=== PATIENT | male | born 1955 | race Caucasian/White ===

== ENCOUNTER 2024-08-14 07:38 | Observation (INO) ==
--- NOTE | 2024-07-17 11:35 | PAT Medication Instructions ---
Medication Instructions Date of Service July 17, 2024 Home Medications alprazolam 0.5 mg tablet 0.5 mg PO BID PRN apixaban 5 mg tablet (Eliquis) 5 mg PO BID ascorbic acid (vitamin C) 500 mg tablet (Vitamin C) 500 mg PO QAM atenolol 50 mg tablet 50 mg PO UD cefadroxil 500 mg capsule 500 mg PO BID cholecalciferol (vitamin D3) 10 mcg (400 unit) tablet (Vitamin D3) 10 mcg PO QAM diltiazem HCl 240 mg capsule,extended release 24 hr 240 mg PO QAM empagliflozin 25 mg tablet (Jardiance) 25 mg PO QPM glimepiride 2 mg tablet 2 mg PO BID hydrochlorothiazide 12.5 mg tablet 12.5 mg PO QAM lisinopril 40 mg tablet 40 mg PO QAM multivitamin 1 tab PO QAM omega-3 fatty acids 1,000 mg PO QAM rosuvastatin 10 mg tablet 10 mg PO QPM Continue as directed cefadroxil 500 mg capsule 500 mg PO BID ASK your prescriber and surgeon apixaban 5 mg tablet (Eliquis) 5 mg PO BID STOP taking 2 weeks before surgery omega-3 fatty acids 1,000 mg PO QAM STOP taking 3 days before surgery empagliflozin 25 mg tablet (Jardiance) 25 mg PO QPM DO NOT take the morning of surgery ascorbic acid (vitamin C) 500 mg tablet (Vitamin C) 500 mg PO QAM cholecalciferol (vitamin D3) 10 mcg (400 unit) tablet (Vitamin D3) 10 mcg PO QAM glimepiride 2 mg tablet 2 mg PO BID hydrochlorothiazide 12.5 mg tablet 12.5 mg PO QAM lisinopril 40 mg tablet 40 mg PO QAM multivitamin 1 tab PO QAM Take morning of surgery With a small sip of water, OTHERWISE NOTHING TO EAT OR DRINK AFTER MIDNIGHT: alprazolam 0.5 mg tablet 0.5 mg PO BID PRN (if needed) atenolol 50 mg tablet 50 mg PO UD diltiazem HCl 240 mg capsule,extended release 24 hr 240 mg PO QAM Take evening before surgery alprazolam 0.5 mg tablet 0.5 mg PO BID PRN (if needed) atenolol 50 mg tablet 50 mg PO UD glimepiride 2 mg tablet 2 mg PO BID rosuvastatin 10 mg tablet 10 mg PO QPM Other Notes If you have any questions please call us at [phone] or [phone] or [phone] or [phone]
--- NOTE | 2024-07-23 13:01 | Anesthesiology Consultation ---
Date of Service July 23, 2024 Assessment & Plan (1) Encounter for pre-operative examination: - Check BSG DOS - Eliquis instructions per surgeon/prescriber - Infectious disease screening: Per assessment on 07/23/24- No known recent infectious disease contacts or current infectious disease symptoms. - Cardiovascular-thoracic surgery (04/16/24): "01/31/23 Right carotid endarterec tim..Patient is recovering well from R CEA.. Follow-up recommended in 1 year with carotid US" - Patient acceptable risk for surgery pending surgeon-ordered PCP preop evaluation (Dr. Gilman, appt 08/05). Chart Review Chart Review: Patient seen in Pre Admission Testing Teaching & Discussion Pre-Anesthesia Teaching/Discussion Notes: Instructed NPO after midnight before surgery,except medications with 15 cc of water. Medication instructions pr ovided according to the PAT guidelines. History Surgery Operation Date: 08/14/24 07:45 Proposed Procedures p Revision L3-S1 Decompression and Fusion, with Spinal Cord Monitoring - Jigar Bonds, Height/Weight Height: 5 ft 11 in Weight: 95.5 kg Allergies Allergy/AdvReac Type Severity Reaction Status Date / Time metformin Allergy Severe Facial Verified 07/22/24 16:16 swelling Sulfa (Sulfonamide Allergy Intermediate Rash Verified 07/16/24 09:46 Antibiotics) hydrocodone Allergy Mild Rash Verified 07/16/24 09:46 Medications Home Medications Medication Instructions Recorded Confirmed Last Taken alprazolam 0.5 mg tablet 0.5 mg PO BID PRN prn 07/16/24 07/16/24 Unknown apixaban 5 mg tablet (Eliquis) 5 mg PO BID 07/16/24 07/16/24 Unknown ascorbic acid (vitamin C) 500 mg 500 mg PO QAM 07/16/24 07/16/24 Unknown tablet (Vitamin C) atenolol 50 mg tablet 50 mg PO UD 07/16/24 07/16/24 Unknown cefadroxil 500 mg capsule 500 mg PO BID 07/16/24 07/16/24 Unknown cholecalciferol (vitamin D3) 10 10 mcg PO QAM 07/16/24 07/16/24 Unknown mcg (400 unit) tablet (Vitamin D3) diltiazem HCl 240 mg 240 mg PO QAM 07/16/24 07/16/24 Unknown capsule,extended release 24 hr empagliflozin 25 mg tablet 25 mg PO QPM 07/16/24 07/16/24 Unknown (Jardiance) glimepiride 2 mg tablet 2 mg PO BID 07/16/24 07/16/24 Unknown hydrochlorothiazide 12.5 mg tablet 12.5 mg PO QAM 07/16/24 07/16/24 Unknown lisinopril 40 mg tablet 40 mg PO QAM 07/16/24 07/16/24 Unknown multivitamin 1 tab PO QAM 07/16/24 07/16/24 Unknown omega-3 fatty acids 1,000 mg PO QAM 07/16/24 07/16/24 Unknown rosuvastatin 10 mg tablet 10 mg PO QPM 07/16/24 07/16/24 Unknown Past Medical History Medical History Anxiety Diabetes mellitus, type 2 NIDDM History of atrial fibrillation Episode ~2021 after choking on food No known recurrence since, 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 Taking Titi (PCP manages) History of carotid stenosis s/p Right CEA (01/2023) Follows with Cardiovascular-thoracic surgery History of cellulitis RLE (2019) after bug bite > needed to have replacement removed and replaced Follows with infectious disease [facility], life-long abx Hypercholesterolemia Hypertension Exercise / Class Metabolic Activity II 4-5 Yardwork/Stairs/Walk up hill Past Surgical History Surgical History History of colonoscopy History of endarterectomy Right CEA (01/2023) History of facial surgery Right cheek cyst removal, [facility] (02/2024) History of lumbar surgery Denies hardware History of rotator cuff surgery R/L History of total knee replacement R/L Past Anesthesia History No Hx of Anesthesia Complications and No Family Hx of Anesthesia Complications History of PONV No Hx of PONV and No Hx of Motion Sickness Social History Smoking Status: Never smoker Do You Dip or Chew Tobacco: No Hx Alcohol Use: Yes alcohol intake frequency: a few times a month Hx Substance Use: No substance use type: does not use Review of Systems Patient denies chest pain, shortness of breath, dyspnea on exertion, fever, chills, cough, wheezing, palpitations. Physical Exam Vital Signs BP 121/68 P 60 TEMP 98.3 SP02 97%RA RESP 16 Physical Full cervical extension range of motion. Full TMJ range of motion. TMD 3 finger breaths Mallampati Score III Dentition: upper partial Lungs: clear throughout to auscultation Cardiac: regular rate and rhythm, no murmurs noted Spine: normal Carotid arteries: negative bruit Extremities: no LE edema Lab Results Anesthesia Preop Results Results Anesthesia Widget: WBC 6.54 K/ul (4.8-10.8) 07/23/24 Hgb 14.3 g/dl (14.0-18.0) 07/23/24 Hct 43.4 % (42.0-52.0) 07/23/24 Plt 128 K/uL (130-400) L 07/23/24 Na 141 mmol/L (136-145) 07/23/24 K 4.4 mmol/L (3.5-5.1) 07/23/24 Cl 103 mmol/L (98-107) 07/23/24 CO2 29 mmol/L (21-32) 07/23/24 BUN 17 mg/dl (6-23) 07/23/24 Creat 1.01 mg/dl (0.6-1.4) 07/23/24 Glucose Level 113 mg/dl (70-99(Fasting)) H 07/23/24 PT 10.3 Seconds (9.0-12.0) 07/23/24 PTT 27 Seconds (21-31) 07/23/24 INR 0.9 (0.9-1.1) 07/23/24 HA1c 7.3 % (4.5-5.6) H 07/23/24 Urine Color Yellow 07/23/24 Urine Appearance Clear (Clear) 07/23/24 Urine pH 5.5 (4.5-7.5) 07/23/24 Urine Specific Myra 1.036 (1.000-1.030) H 07/23/24 Urine Protein Negative (Negative) 07/23/24 Urine Glucose (UA) 3+ (Negative) H 07/23/24 Urine Ketones Trace (Negative) H 07/23/24 Urine Blood Negative (Negative) 07/23/24 Urine Nitrite Negative (Negative) 07/23/24 Urine Bilirubin Negative (Negative) 07/23/24 Urine Urobilinogen Negative (Negative) 07/23/24 Urine Leukocyte Esterase Negative (Negative) 07/23/24 Blood Type O Positive 07/23/24 Antibody Screen NEGATIVE 07/23/24 Testing Electrocardiogram Date: 07/23/24 SB at 59bpm. "Otherwise normal ECG" Chest X-Ray Date: 07/23/24 FINDINGS: No lines and tubes are seen. The cardiomediastinal silhouette is nor mal. The lungs are clear. No evidence of pleural effusion or pneumothorax. IMPRESSION: No acute chest disease. Other Testing Carotid duplex ultrasound Date: 02/03/24 Approximately 50-69% luminal narrowing in right proximal ICA. Low velocity flow in right distal ICA. Atherosclerotic plaques in left carotid bulb with minimal luminal stenosis. Antegrade flow seen in bilateral vertebral arteries.
[2024-08-14] MEDS ORDERED: fentaNYL citrate PF 100 MCG/2 ML VIAL ONE ×2 (09:17→13:10)
[2024-08-14] MEDS ORDERED: ONDANSETRON INJ 2 MG/ML 2 ML VIAL ONE (09:17)
[2024-08-14] MEDS ORDERED: PROPOFOL IV EMULSION 10 MG/ML 20 ML VIAL IV ONE ×2 (09:17→09:53)
[2024-08-14] MEDS ORDERED: LIDOCAINE 2% 2 ML VIAL/AMP(20MG/ML) INFIL ONE (09:17)
[2024-08-14] MEDS ORDERED: ROCURONIUM BROMIDE 10 MG/ML 5 ML VIAL IV ONE ×2 (09:17→12:04)
[2024-08-14] MEDS ORDERED: DEXAMETHASONE SOD INJ 4 MG/ML VIAL ONE (09:17)
[2024-08-14] MEDS ORDERED: MIDAZOLAM HCL 1 MG/ML 2ML VIAL ONE (09:18)
[2024-08-14] MEDS: LR 15ML/HR IV SCH (09:18)
[2024-08-14] MEDS: ACETAMINOPHEN 500 MG TAB PO SCH (09:19)
[2024-08-14] MEDS: CeleBREX 200 MG CAP PO SCH (09:20)
[2024-08-14] MEDS: GABAPENTIN 300 MG CAP PO SCH (09:21)
[2024-08-14] MEDS ORDERED: PROMETHAZINE HCL 6.25 MG in SODIUM CHLORIDE 0.9% 50 ML IV PRN (09:28)
[2024-08-14] MEDS ORDERED: ATROPINE SULFATE 0.1 MG/ML 10ML SYR IV PRN (09:28)
[2024-08-14] MEDS ORDERED: ONDANSETRON INJ 2 MG/ML 2 ML VIAL IV PRN ×2 (09:28→17:00)
[2024-08-14] MEDS ORDERED: ePHEDrine sulfate 50 MG/ML AMP IV PRN (09:28)
[2024-08-14] MEDS ORDERED: HYDROmorphone INJ 1 MG/ML SYRINGE IV PRN ×2 (09:28→17:00)
--- NOTE | 2024-08-14 11:09 | History & Physical Bridge Note ---
Date of Service August 14, 2024 History & Physical Bridge Note I have examined the patient, reviewed the History & Physical and in the interval since the performance of the History & Physical I have noted the following changes of clinical significance: no changes noted
--- NOTE | 2024-08-14 11:10 | History & Physical Report ---
Date of Service August 14, 2024 Assessment & Plan (1) Neurogenic claudication due to lumbar spinal stenosis: Plan: Revision L3-S1 decompression and fusion History of Present Illness Chief Complaint: back and leg pain Primary Care Provider: NO PCP This is a 60-year-old male presents with chronic system back and leg pain and failing course of nonoperative care is here for surgical invention. Allergies Allergy/AdvReac Type Severity Reaction Status Date / Time metformin Allergy Severe Facial Verified 08/14/24 08:48 swelling Sulfa (Sulfonamide Allergy Intermediate Rash Verified 08/14/24 08:48 Antibiotics) hydrocodone Allergy Mild Rash Verified 08/14/24 08:48 Home Medications Medication Instructions Recorded Confirmed Type alprazolam 0.5 mg tablet 0.5 mg PO BID PRN prn 07/16/24 08/14/24 History apixaban 5 mg tablet (Eliquis) 5 mg PO BID 07/16/24 08/14/24 History ascorbic acid (vitamin C) 500 mg 500 mg PO QAM 07/16/24 08/14/24 History tablet (Vitamin C) atenolol 50 mg tablet 50 mg PO UD 07/16/24 08/14/24 History cefadroxil 500 mg capsule 500 mg PO BID 07/16/24 08/14/24 History cholecalciferol (vitamin D3) 10 10 mcg PO QAM 07/16/24 08/14/24 History mcg (400 unit) tablet (Vitamin D3) diltiazem HCl 240 mg 240 mg PO QAM 07/16/24 08/14/24 History capsule,extended release 24 hr empagliflozin 25 mg tablet 25 mg PO QPM 07/16/24 08/14/24 History (Jardiance) glimepiride 2 mg tablet 2 mg PO BID 07/16/24 08/14/24 History hydrochlorothiazide 12.5 mg tablet 12.5 mg PO QAM 07/16/24 08/14/24 History lisinopril 40 mg tablet 40 mg PO QAM 07/16/24 08/14/24 History multivitamin 1 tab PO QAM 07/16/24 08/14/24 History omega-3 fatty acids 1,000 mg PO QAM 07/16/24 08/14/24 History rosuvastatin 10 mg tablet 10 mg PO QPM 07/16/24 08/14/24 History Past Med/Surg History Problem List (Updated 08/14/24 @ 11:10 by Jigar Bonds DO) Neurogenic claudication due to lumbar spinal stenosis Encounter for pre-operative examination Medical History Anxiety Diabetes mellitus, type 2 NIDDM History of atrial fibrillation Episode ~2021 after choking on food No known recurrence since, 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 Eliajit (PCP manages) History of carotid stenosis s/p Right CEA (01/2023) Follows with Cardiovascular-thoracic surgery History of cellulitis RLE (2019) after bug bite > needed to have replacement removed and replaced Follows with infectious disease [facility], life-long abx Hypercholesterolemia Hypertension Surgical History History of colonoscopy History of endarterectomy Right CEA (01/2023) History of facial surgery Right cheek cyst removal, [facility] (02/2024) History of lumbar surgery Denies hardware History of rotator cuff surgery R/L History of total knee replacement R/L Social History Smoking Status: Never smoker Second Hand Exposure: No; Do You Dip or Chew Tobacco: No; Tobacco Cessation Education Requested by Patient: No Hx Alcohol Use: Yes Hx Substance Use: No Preferred 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
[2024-08-14] MEDS: ceFAZolin 2000MG 2,000 MG/15 ML SYR IV SCH ×2 (11:45→21:25)
[2024-08-14] MEDS ORDERED: GLYCOPYRROLATE 0.2 MG/ML VIAL ONE (13:56)
[2024-08-14] MEDS ORDERED: NEOSTIGMINE METHYLSULFATE 1 MG/ML 10ML VIAL ONE (13:56)
[2024-08-14] MEDS ORDERED: DexMEDEtomidine HCL IV 100 MCG/ML VIAL IV ONE (14:01)
[2024-08-14] MEDS: BUPIVACAINE/EPINEPHRINE 0.25% 1:200,000 30 ML VIAL ONE (14:04)
[2024-08-14] MEDS: FLOSEAL HEMOSTATIC MATRIX 10ML TOP ONE ×2 (14:05→14:07)
[2024-08-14] MEDS: ceFAZolin 330 MG/ML 1 GM VIAL ONE (14:07)
--- NOTE | 2024-08-14 14:08 | Operative Report ---
Post Operative Report Pre & Post Diagnosis Operation Date: 08/14/24 10:05 Pre-Op Diagnosis: Neurogenic claudication due to lumbar spinal stenosis Postop diagnosis: Same I identified the patient and participated in the time-out.: Yes Procedure Operation Date: 08/14/24 10:05 Actual Procedures #1 revision decompression with bilateral medial facetectomies and foraminotomies L2-L3, L3-L4, L4-5 and L5-S1. #2 posterior spinal fusion L3-S1. #3 placement posterior segmental instrumentation L3-S1. #4 interbody fusion L3-L4, L4-L5 and L5-S1. #5 placement of Spira 11 x 26 mm at L3-L4, 13 x 26 mm at L4-5, and 9 x 26 mm at L5-S1. #6 placement locally harvested morselized autograft in the posterior gutters. #7 placement infuse collagen sponge combined with Koros in the posterior lateral gutters and os design and interbody space. #8 placement of versa wrap over the exposed dura. Surgeon Jigar Bonds, Wedding Makeup Artist Jocelyne Pace Estimated Blood Loss 300 Findings Consistent with Post-Op Diagnosis Specimens None Indications This is a 68-year-old male presents above his diagnosis of failing course of nonoperative care is here for surgical invention. Description of Procedure Patient was met with identified informed consent obtained. Patient was then taken to the operative suite underwent intubation placed in a prone position on the [place] table on top of the Jona frame. All bony prominences well-padded eyes inspected to ensure no external pressure placed upon them. This point the lumbar spine was prepped and draped in normal sterile fashion. Sharp dissection with the assistance of Bovie cautery performed down to and exposing the remaining lamina transverse processes of L3-L4-L5 and the sacral ala bilaterally. For caudal to cephalad fashion revision complete laminectomy of L5 was performed including bilateral medial facetectomies and foraminotomies followed by complete revision laminectomy of L4 with bilateral medial fact facetectomies and foraminotomies. This was followed by revision complete laminectomy of L3 with bilateral medial facetectomies and foraminotomies and lastly partial laminectomy of L2 with bilateral medial facetectomies to address subarticular stenosis. Pedicle screws were then placed in L3 L4-5 and S1 levels bilaterally with assistance of fluoroscopy and appropriate size don placed. By way of a transforaminal approach on the right a complete discectomy of L5-S1 was performed endplates corrected to subcortical bleeding bone and 9 x 26 mm spiral cage filled with ostia sign tapped in position. I proceeded L4-[address] of a transforaminal approach on the right complete discectomy performed endplates corrected to subcortical bleeding bone and the 13 x 26 mm Spira cage filled with os designed tapped into position. Lastly approached L3-L4 and again by way of transforaminal approach on the right complete discectomy performed endplates guarded to subcortical mean bone and a 11 x 26 mm spiral cage filled with Oxyzyme tapped in position. The rods were then locked in final position bilaterally. The transverse processes of L2-3 L4-L5 and the sacral ala burred to subcortical bleeding bone. Infuse collagen sponge, with Koros and local autograft placed in the posterior lateral gutters. 15 round JORGE drain inserted. Versa wrap placed over the exposed dura. The incision was then closed with 1 Vicryl the fascia 2-0 Vicryl subcutaneously and 4 Monocryl for final skin closure. Steri-Strips and sterile dressing placed. Patient waken taken PACU stable condition. Please note Jocelyne Pace was present at the entire procedure and brought the patient positioning complex portion of the surgery and fascial closure. Spinal cord monitoring was utilized at the procedure no changes noted. Im ordering 20 grams of Triple Barker Collagen Powder ([employer] [id number]) to treat an incision wound that was caused by a spine procedure. The incision is appro ximately 2 cm(W) x 4 cm(L) into the joint (D) in size and is a full thickness wound. Triple Barker collagen comes in 1 gram packets so 20 packets were ordered. Given the size of the wound, with light to moderate exudate I chose to order a 20 day supply. The patient will be provided instructions for proper application of the collagen wound kit. The patient will be asked to apply the collagen powder daily and then cover it with sterile dressings dispensed. Collagen was selected as I expect the collagen to attract monocytes and fibroblasts, act as a sacrificial substrate for MMPs, and ultimately proved a matrix for tissue and vessel growth. The collagen will act as a primary dressing in this scenario. It is medically necessary for proper healing of these wounds to improve bioavailability and contact with each wound surface, this is also to help prevent infection of wounds and promote healing ultimately leading to a better healing outcome and limit the risk of infection. I attest to the content of the Intraoperative Record and any orders documented therein. Any exceptions are noted below.
--- NOTE | 2024-08-14 14:13 | Fluoroscopy Report ---
FL lumbar spine 2-3V CLINICAL HISTORY: REVISION L3-[id number] post lumbar spine surgery COMPARISON STUDY: None FLUOROSCOPY TIME: 31.5 seconds FLUOROSCOPY IMAGES: 2 EXPOSURE DOSE: 27.23 mGy FINDINGS: Posterior interbody don and screw fusion hardware with discectomy changes noted at what francis ears to be the L3-S1 levels. Note that the images were submitted following completion of the surgery. No unexpected opaque foreign bodies identified. The hardware appears intact. IMPRESSION: Fluoroscopic assistance as above. ACT 112: Negative or not required by law. Electronically signed by: Eber Hyde M.D. 08/14/2024 2:11 PM
[2024-08-14] MEDS: HYDROmorphone INJ 2 MG/ML SYR/VIAL IV PRN (14:42)
--- NOTE | 2024-08-14 15:31 | Anesthesiology Progress Note ---
Date of Service August 14, 2024 Anesthesia Post Procedure Vital Signs Vital Signs: Temp Pulse Pulse Resp BP BP Pulse Ox 08/14/24 15:25 63 17 112/55 L 97 08/14/24 15:15 59 L 14 100/63 98 08/14/24 15:05 62 15 120/57 L 97 08/14/24 14:55 54 L 12 107/53 L 100 08/14/24 14:45 57 L 14 93/55 L 100 08/14/24 14:35 55 L 13 97/52 L 100 08/14/24 14:29 36.2 C L 59 L 12 109/51 L 100 08/14/24 08:58 36.8 C 61 15 132/77 96 O2 Del Method O2 Flow Rate 08/14/24 15:25 Room Air 08/14/24 15:15 Room Air 08/14/24 15:05 Room Air 08/14/24 14:55 Oxymask 5 08/14/24 14:45 Oxymask 5 08/14/24 14:35 Oxymask 5 08/14/24 14:29 Oxymask 5 08/14/24 08:58 Room Air Pain Intensity Back: Pain Intensity: 4 Transfer of Care Handoff Completed per policy Notes Mental Status: alert / awake / arousable Patient Amnestic to Procedure: Yes Nausea / Vomiting: adequately controlled Pain: adequately controlled Airway Patency, RR, SpO2: stable & adequate BP & HR: stable & adequate Hydration State: stable & adequate Anesthetic Complications: no major complications apparent
[2024-08-14] MEDS ORDERED: METOCLOPRAMIDE HCL INJ 5 MG/ML 2 ML VIAL IV PRN (17:00)
[2024-08-14] MEDS ORDERED: HYDROmorphone INJ 0.5 MG/0.5 ML SYR IV PRN (17:00)
[2024-08-14] MEDS ORDERED: ALUMINUM/MAGNESIUM SUSP 30 ML UDC PO PRN (17:00)
[2024-08-14] MEDS ORDERED: PROMETHAZINE 12.5 MG/50.5 ML BAG IV PRN (17:00)
[2024-08-14] MEDS ORDERED: hydrOXYzine HCl 25 MG TAB PO PRN (17:00)
[2024-08-14] MEDS ORDERED: LORazepam 2 MG/1 ML VIAL IV PRN (17:00)
[2024-08-14] MEDS ORDERED: diphenhydrAMINE Capsule 25 MG CAP PO PRN (17:00)
[2024-08-14] MEDS ORDERED: DO NOT ADMINISTER FLU VACCINE PRN (17:00)
[2024-08-14] MEDS ORDERED: FAMOTIDINE 20 MG TAB PO PRN (17:00)
[2024-08-14] MEDS ORDERED: ACETAMINOPHEN 1,000 MG/100 ML VIAL IV PRN (17:00)
[2024-08-14] MEDS ORDERED: LORazepam 0.5 MG TAB PO PRN (17:00)
[2024-08-14] MEDS ORDERED: SOD PHOSPHATE/SOD BIPHOSPHATE ENEMA 132 ML BTL PR PRN (17:00)
[2024-08-14] MEDS ORDERED: traMADol HCL 50 MG TABLET PO PRN (17:00)
[2024-08-14] MEDS ORDERED: NALOXONE HCL 0.4 MG/1 ML VIAL/CARP IV PRN (17:00)
[2024-08-14] MEDS ORDERED: bisacodyL 10 MG SUPP PR PRN (17:00)
[2024-08-14] MEDS ORDERED: PHARMACY GLYCEMIC MGMT CONSULT PRN (17:00)
[2024-08-14] MEDS ORDERED: ONDANSETRON 4 MG OD TAB PO PRN (17:00)
[2024-08-14] MEDS ORDERED: DO NOT ADMINISTER PNEUMOCOCCAL VACCINE PRN (17:00)
[2024-08-14] MEDS ORDERED: MAGNESIUM HYDROXIDE SUSP 30 ML UDC PO PRN (17:00)
--- NOTE | 2024-08-14 17:20 | Communication Note ---
Date of Service: August 14, 2024 called by [facility] nursing to evaluate patients eye after discharge from [facility]. Patient states he remembered scratching his eye in [facility] and pain/itching became worse afterwards. No notable issue noted periprocedurally. patient seen at bedside reports irritation to left eye, corneal abrasion appreciated lateral to pupil, no erythema or redness, patient states his vision is not effected. will order antiobiotic drops for effected eye, consult to be placed for ophthalmology for follow up and and management.
--- NOTE | 2024-08-14 17:36 | Hospitalist Consultation ---
Date of Consultation August 14, 2024 Assessment & Plan (1) Neurogenic claudication due to lumbar spinal stenosis: This is a 68 y/o male with DM2, history of afib, on chronic AC, hx carotid stenosis s/p right CEA, HTN, hypercholesterolemia, anxiety, and lumbar spinal stenosis who underwent L3-S1 decompression fusion today by Dr. Bonds and for whom we have been consulted to assist with post-operative medical management. Currently, pt is overall doing well post-operatively. Ophthalmology evaluation f or possible corneal abrasion is pending. - Pain control, activity per primary service. - Resume chronic anticoagulation once okay with primary team. - Encourage incentive spirometry - Labs in the AM - CBC, BMP. Monitor for post-operative blood loss anemia - EBL 300 ml. (2) Diabetes mellitus, type 2: Chronic, stable Glycemic pharmacist consult pending - initial insulin orders placed BSG ACHS A1c in the AM (3) History of atrial fibrillation: Continue atenolol Resume anticoagulation as discussed (4) Hypertension: BP currently well-controlled Continue outpatient regimen as appropriate (5) Hypercholesterolemia: Chronic, stable Continue statin Plan Pt seen and reviewed with collaborating physician, Dr. Garcia. Plan of care discussed and as outlined above. Thank you for this consultation. We will continue to follow this patient with you. A member of the [place] [facility] Hospitalist Team is available 22/04 via [employer]. Please don't hesitate to reach out with questions. Joyce Damon PA-C Supervising Physician Co-Signing Physician Notes 68 yo M was seen as medical consult after spinal sx. pt is hemodynamically stable. no febrile illness in the recent week. pt reports operative site pain under control. Resume anticoagulation when bleeding risk deemed minimal per sx team. Oph eval for corneal abrasion pending. on exam: GENERAL: Alert and oriented x3. NAD, on RA. HEENT: No pallor, no icterus. Pupils equal, round and reactive to light. Oral mucosa moist. NECK: No JVD, no neck masses. HEART: S1 and S2 heard. Regular rate and rhythm. No murmur, no gallop. RESPIRATORY SYSTEM: Normal AP diameter. No accessory muscle use. No wheezing, no crackles. ABDOMEN: Soft, bowel sounds present, nontender, no distention. CENTRAL NERVOUS SYSTEM: No facial droop. Speech is clear. Obeys simple commands. Moves extremities. EXTREMITIES: No edema, no erythema seen. low back w/ clean dressing. JORGE drain w/ mod serosanguinous outs. I have seen and examined the patient and have discussed the case with the provider above. I agree with the assessment and plan as stated. Time spent: 15 min History of Present Illness Reason for Consultation: post-operative medical management Requesting Physician: Dr. Jigar Bonds Attending Physician: Jigar Bonds, DO History of Present Illness This is a 68 y/o male with DM2, history of afib, on chronic AC, hx carotid stenosis s/p right CEA, HTN, hypercholesterolemia, anxiety, and lumbar spinal stenosis who underwent L3-S1 decompression fusion today by Dr. Bonds and for whom we have been consulted to assist with post-operative medical management. Pt is seen post-operatively on the floor. He is having some incisional pain in his lower back but reports that this is manageable. He is having left eye irritation with a foreign body sensation. Per notes from anesthesia, pt thinks that he may have scratched his eye while recovering in PACU. There is concern for a small corneal abrasion so antibiotic drops have been ordered but pt reports these have not been started yet. He denies chest pain, dyspnea, nausea, vomiting, lightheadedness, numbness or tingling. He is having a dry mouth/throat but denies sore throat or dysphagia. He follows his blood sugars at home and reports that they are typically well-controlled with glucose <200. Allergies Allergy/AdvReac Type Severity Reaction Status Date / Time metformin Allergy Severe Facial Verified 08/14/24 08:48 swelling Sulfa (Sulfonamide Allergy Intermediate Rash Verified 08/14/24 08:48 Antibiotics) hydrocodone Allergy Mild Rash Verified 08/14/24 08:48 Home Medications Medication Instructions Recorded Confirmed Type alprazolam 0.5 mg tablet 0.5 mg PO BID PRN prn 07/16/24 08/14/24 History apixaban 5 mg tablet (Eliquis) 5 mg PO BID 07/16/24 08/14/24 History ascorbic acid (vitamin C) 500 mg 500 mg PO QAM 07/16/24 08/14/24 History tablet (Vitamin C) atenolol 50 mg tablet 50 mg PO UD 07/16/24 08/14/24 History cefadroxil 500 mg capsule 500 mg PO BID 07/16/24 08/14/24 History cholecalciferol (vitamin D3) 10 10 mcg PO QAM 07/16/24 08/14/24 History mcg (400 unit) tablet (Vitamin D3) diltiazem HCl 240 mg 240 mg PO QAM 07/16/24 08/14/24 History capsule,extended release 24 hr empagliflozin 25 mg tablet 25 mg PO QPM 07/16/24 08/14/24 History (Jardiance) glimepiride 2 mg tablet 2 mg PO BID 07/16/24 08/14/24 History hydrochlorothiazide 12.5 mg tablet 12.5 mg PO QAM 07/16/24 08/14/24 History lisinopril 40 mg tablet 40 mg PO QAM 07/16/24 08/14/24 History multivitamin 1 tab PO QAM 07/16/24 08/14/24 History omega-3 fatty acids 1,000 mg PO QAM 07/16/24 08/14/24 History rosuvastatin 10 mg tablet 10 mg PO QPM 07/16/24 08/14/24 History Patient History Medical History History of carotid stenosis s/p Right CEA (01/2023) Follows with Cardiovascular-thoracic surgery History of atrial fibrillation Episode ~2021 after choking on food No known recurrence since, subsequent unremarkable laboratory monitor Taking Eliquis (PCP manages) History of cellulitis RLE (2019) after bug bite > needed to have replacement removed and replaced Follows with infectious disease [facility], life-long abx Diabetes mellitus, type 2 NIDDM Anxiety Hypercholesterolemia Hypertension Surgical History History of endarterectomy Right CEA (01/2023) History of facial surgery Right cheek cyst removal, [facility] (02/2024) History of rotator cuff surgery R/L History of total knee replacement R/L History of lumbar surgery Denies hardware History of colonoscopy Social History Smoking Status: Never smoker Second Hand Exposure: No; Do You Dip or Chew Tobacco: No; Tobacco Cessation Education Requested by Patient: No Hx Alcohol Use: Yes Hx Substance Use: No Preferred Language: Polish 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: No Beliefs That Will Affect Care: None Current Living Situation: Other Other Information That Helps Us Care for You: No Feels Safe at Home: Yes Safety Concerns: Feels Safe At This Time Assistive Devices: Denture - Upper Review of Systems Review of Systems: All systems reviewed & are unremarkable except as noted in Subjective Physical Exam Physical Exam: General: awake, alert, NAD HEENT: PERRL, left eye with possible small corneal abrasion, dry oral mucosa Neck: supple, trachea midline Heart: RRR, no M/G/R Lungs: CTA bilaterally, no W/R/R Abdomen: soft, NT, +BS Extremities: distal pulse intact and equal, no pedal edema Neurologic: moving all extremities, no focal deficits, sensation to light touch intact bilateral LE JORGE drain in place with sanguinous drainage Results & Data Results & Data Vital Signs (Past 12 Hours) Vital Signs Temp Pulse Pulse Resp BP BP Pulse Ox 08/14/24 17:00 36.3 C L 64 14 114/69 94 08/14/24 16:15 61 12 109/59 L 95 08/14/24 15:45 36.5 C 56 L 15 105/62 93 08/14/24 15:35 56 L 12 110/51 L 92 08/14/24 15:25 63 17 112/55 L 97 08/14/24 15:15 59 L 14 100/63 98 08/14/24 15:05 62 15 120/57 L 97 08/14/24 14:55 54 L 12 107/53 L 100 08/14/24 14:45 57 L 14 93/55 L 100 08/14/24 14:35 55 L 13 97/52 L 100 08/14/24 14:29 36.2 C L 59 L 12 109/51 L 100 08/14/24 08:58 36.8 C 61 15 132/77 96 O2 Del Method O2 Flow Rate 08/14/24 17:00 Nasal Cannula 2 08/14/24 16:15 Nasal Cannula 2 08/14/24 15:45 Room Air 08/14/24 15:35 Room Air 08/14/24 15:25 Room Air 08/14/24 15:15 Room Air 08/14/24 15:05 Room Air 08/14/24 14:55 Oxymask 5 08/14/24 14:45 Oxymask 5 08/14/24 14:35 Oxymask 5 08/14/24 14:29 Oxymask 5 08/14/24 08:58 Room Air Laboratory Results 08/14/24 08/14/24 08/14/24 08:42 09:41 14:29 POC Glucose 165 H 160 H Blood Type O Positive Antibody Screen NEGATIVE Crossmatch See Detail Diagnostic Findings Lumbar Spine X-Ray 08/14/24 10:05 FL lumbar spine 2-3V CLINICAL HISTORY: REVISION [id number] post lumbar spine surgery COMPARISON STUDY: None FLUOROSCOPY TIME: 31.5 seconds FLUOROSCOPY IMAGES: 2 EXPOSURE DOSE: 27.23 mGy FINDINGS: Posterior interbody don and screw fusion hardware with discectomy changes noted at what appears to be the L3-S1 levels. Note that the images were submitted following completion of the surgery. No unexpected opaque foreign bodies identified. The hardware appears intact. IMPRESSION: Fluoroscopic assistance as above. ACT 112: Negative or not required by law. Electronically signed by: Eber Hyde M.D. 08/14/2024 2:11 PM Medications Administered Acetaminophen (Acetaminophen 500 Mg Tab) 1,000 mg PO PREOP BEVERLY Stop: 08/14/24 18:00 Last Admin: 08/14/24 09:19 Dose: 1,000 mg Documented By: NANCY Celecoxib (Celebrex 200 Mg Cap) 200 mg PO PREOP BEVERLY Stop: 08/14/24 18:00 Last Admin: 08/14/24 09:20 Dose: 200 mg Documented By: NANCY Gabapentin (Gabapentin 300 Mg Cap) 300 mg PO PREOP BEVERLY Stop: 08/14/24 18:00 Last Admin: 08/14/24 09:21 Dose: 300 mg Documented By: NANCY Lactated Ringer's (Lr) 1,000 mls @ 15 mls/hr IV .Q24H BEVERLY Stop: 08/15/24 05:59 Last Infusion: 08/14/24 11:25 Dose: Infused Documented By: Infusion: 08/14/24 09:19 Dose: 0 mls/hr Documented By: Admin: 08/14/24 09:18 Dose: 15 mls/hr Documented By: NANCY Cefazolin Sodium (Ancef 2000mg) 2,000 mg in 15 mls @ 3.75 mls/min IV PREOP BEVERLY; Protocol Stop: 08/14/24 18:00 Last Admin: 08/14/24 11:45 Dose: 3.75 mls/min Documented By: BRY Discontinued Medications Bupivacaine HCl/Epinephrine Bitart (Bupivacaine/Epinephrine 0.25% 1:200,000 30 Ml Vial) Confirm Administered Dose 30 ml .ROUTE .STK-MED ONE Stop: 08/14/24 11:08 Last Admin: 08/14/24 14:04 Dose: 20 ml Documented By: BRY Cefazolin Sodium (Cefazolin 330 Mg/Ml 1 Gm Vial) Confirm Administered Dose 990 mg .ROUTE .STK-MED ONE Stop: 08/14/24 11:08 Last Admin: 08/14/24 14:07 Dose: 990 mg Documented By: BRY Hydromorphone HCl (Hydromorphone Inj 2 Mg/Ml Syr/Vial) 0.5 mg IV Q5M PRN PRN Reason: PACU Use Only-Pain Stop: 08/14/24 17:28 Last Admin: 08/14/24 15:20 Dose: 0.5 mg Documented By: Admin: 08/14/24 15:15 Dose: 0.5 mg Documented By: Admin: 08/14/24 14:47 Dose: 0.5 mg Documented By: Admin: 08/14/24 14:42 Dose: 0.5 mg Documented By: WENDY Miscellaneous ( Floseal Hemostatic Matrix 10ml) 30 ml TOP ONCE ONE Stop: 08/14/24 12:50 Last Admin: 08/14/24 14:05 Dose: 30 ml Documented By: BRY Miscellaneous ( Floseal Hemostatic Matrix 10ml) 10 ml TOP ONCE ONE Stop: 08/14/24 14:08 Last Admin: 08/14/24 14:07 Dose: 3 ml Documented By: BRY (2) Diabetes mellitus, type 2 Diabetes mellitus complication status: without complication Diabetes mellitus penitentiary insulin use: without intermediate manager use Qualified Code(s): E11.9 - Type 2 diabetes mellitus without complications (4) Hypertension Hypertension type: primary hypertension Qualified Code(s): I10 - Essential (primary) hypertension
[2024-08-14] MEDS ORDERED: GLUCAGON FOR INJ 1 MG VIAL SQ PRN (17:57)
[2024-08-14] MEDS ORDERED: DEXTROSE 50% 50 ML SYRINGE IV PRN (17:57)
[2024-08-14] MEDS ORDERED: CARBOHYDRATES FOR HYPOGLYCEMIA PO PRN (17:57)
[2024-08-14] MEDS ORDERED: GLUCOSE 40% GEL 15 GM TUBE PO PRN (17:57)
[2024-08-14] MEDS ORDERED: GLUCOSE 10 TAB/TUBE PO PRN (17:57)
[2024-08-14] MEDS: LR 60ML/HR IV SCH (18:14)
[2024-08-14] MEDS: CIPROFLOXACIN HCL 0.3% OP SOLN 2.5 ML BTL OPL SCH (19:28)
[2024-08-14] MEDS ORDERED: EMPAGLIFLOZIN 25 MG TAB PO SCH (21:00)
[2024-08-14] MEDS ORDERED: GLIMEPIRIDE 2 MG TAB PO SCH (21:00)
[2024-08-14] MEDS: ROSUVASTATIN CALCIUM 10 MG TAB PO SCH (21:18)
[2024-08-14] MEDS: ATENOLOL 50 MG TABLET PO SCH (21:18)
[2024-08-14] MEDS: INSULIN ASPART PER UNIT CHARGE SC SCH (21:19)
[2024-08-14] MEDS: DOCUSATE SODIUM/SENNA 50/8.6MG TAB PO SCH (21:19)
[2024-08-14] MEDS: LANTUS PER UNIT CHARGE SC STA (21:49)
[2024-08-14] MEDS: ALPRAZolam 0.5 MG TABLET PO PRN (21:49)
[2024-08-14] MEDS: oxyCODONE HCL IR 5 MG TAB (IMMEDIATE RELEASE) PO PRN (21:54)
[2024-08-15] MEDS: INSULIN ASPART PER UNIT CHARGE SC SCH (00:09)
[2024-08-15] MEDS: POLYETHYLENE (MIRALAX) 17 GM PACK PO SCH (05:52)
[2024-08-15] MEDS: ACETAMINOPHEN 500 MG TAB PO PRN (06:03)
[2024-08-15 06:38] LABS: Basophils # (auto) 0.02 K/uL (0.00-0.20); Basophils % (auto) 0.1 %; Immature Granulocytes % (auto) 0.7 %; Lymphocytes # (auto) 0.66 K/uL (1.20-3.40); Lymphocytes % (auto) 4.8 %; Mean Corpuscular Hemoglobin 29.4 pg (25.0-34.0); Mean Corpuscular Hgb Conc 34.4 g/dL (32.0-36.0); Mean Corpuscular Volume 85.6 fL (80.0-100.0); Mean Platelet Volume 9.4 fL (9.4-12.4); Monocytes # (auto) 1.05 K/uL (0.11-0.59); Monocytes % (auto) 7.7 %; Neutrophils % (auto) 86.7 %; Platelet Count 136 K/uL (130-400); RDW Coefficient of Variation 14.7 % (11.5-14.5); RDW Standard Deviation 45.2 fL (36.4-46.3); Red Blood Count 3.74 M/uL (4.70-6.10); White Blood Count 13.63 K/ul (4.8-10.8)
[2024-08-15 06:54] LABS: BUN Creatinine Ratio 18.1 (10-20); Calcium 8.7 mg/dl (8.6-10.3); Potassium 4.5 mmol/L (3.5-5.1)
[2024-08-15 07:09] LABS: Estimated Average Glucose 148 mg/dl; Hemoglobin A1C 6.8 % (4.5-5.6)
[2024-08-15] MEDS: dilTIAZem HCL 240 MG CAPCR PO SCH (08:37)
[2024-08-15] MEDS: ASCORBIC ACID 500 MG TAB PO SCH (08:37)
[2024-08-15] MEDS: hydroCHLOROthiazide 25 MG TAB PO SCH (08:37)
[2024-08-15] MEDS: CHOLECALCIFEROL 10 MCG (400 UNITS) TAB PO SCH (08:37)
[2024-08-15] MEDS: ATENOLOL 50 MG TABLET PO SCH (08:38)
[2024-08-15] MEDS: MULTIVITAMIN TAB PO SCH (08:38)
[2024-08-15] MEDS: lisinopril 40 MG TAB PO SCH (08:38)
[2024-08-15] MEDS: dexAMETHasone 6 MG in SYRINGE 0 ML IV SCH (08:38)
[2024-08-15] MEDS: LANTUS PER UNIT CHARGE SC SCH ×2 (08:39→20:07)
--- NOTE | 2024-08-15 08:43 | Orthopedic Progress Note ---
Date of Service August 15, 2024 Assessment & Plan (1) Neurogenic claudication due to lumbar spinal stenosis: Plan: Hari is postoperative day 1 status post lumbar decompression and fusion L3- S1. He will start physical therapy today. Ambulate ad antwan. DVT prophylaxis is in the form teds and SCDs. Hold anticoagulation. Continue with pain control. Continue with aggressive bowel regimen. Maintain JORGE drain. Anticipate discharge home within the next couple of days Admission and Anticipated Discharge Date Admission Date: August 14, 2024 Fuad Noriega is postoperative day 1 status post lumbar decompression and fusion L3- S1. He had an uneventful evening. Pain is controlled. JORGE drain output last shift was 80 cc. H&H this morning are 11.0 and 32.0. No other complaints. Review of Systems Review of Systems: All systems reviewed & are unremarkable except as noted in HPI & below Physical Exam Physical Exam: He sitting in a chair eating breakfast No acute distress Alert and oriented x 3 dressing is clean dry and intact with functioning JORGE drain strength intact bilateral lower extremities calf soft nontender bilaterally Results & Data Vital Signs (Past 12 Hours) Vital Signs Temp Pulse Pulse Resp BP Pulse Ox O2 Del Method 08/15/24 07:37 36.9 C 85 16 119/68 97 Room Air 08/15/24 04:01 36.9 C 87 14 126/77 94 Room Air 08/14/24 23:42 36.7 C 87 16 123/72 93 Room Air
--- NOTE | 2024-08-15 11:09 | Hospitalist Progress Note ---
Date of Service August 15, 2024 Assessment & Plan (1) Neurogenic claudication due to lumbar spinal stenosis: (2) Acute blood loss anemia: (3) Diabetes mellitus, type 2: (4) Hypertension: (5) Paroxysmal atrial fibrillation: (6) History of total knee replacement: Plan: On chronic suppressive antibiotic therapy Plan Overall patient appears to be doing well postoperatively. Postsurgical management per attending Hemoglobin has trended down since preadmission testing. Anticipate this is expected with surgical intervention. Will continue to monitor Start Keflex twice daily for chronic suppressive therapy for patient's previous knee surgery, this is similar to the Duricef he is on at home Continue to monitor glucose and utilize sliding scale insulin for management Continue to hold anticoagulation as recommended by surgery resume when appropriate Admission and Anticipated Discharge Date Admission Date: August 14, 2024 Subjective Patient states pain is fairly well-controlled. Concerned that he is not getting his antibiotic for chronic suppressive therapy from my previous knee joint infection. Physical Exam Physical Exam: Constitutional: Alert, sitting in chair HEENT: Mucous membranes moist. Lungs: Clear to auscultation, decreased, no wheezes rales or rhonchi CV: S1-S2, regular Abdomen: Soft, nontender, nondistended Extremities: No significant edema Neuro: No focal deficits Psych: Cooperative, normal mood Results & Data Results & Data Vital Signs (Past 12 Hours) Vital Signs Temp Pulse Pulse Resp BP Pulse Ox O2 Del Method 08/15/24 08:30 Room Air 08/15/24 07:37 36.9 C 85 16 119/68 97 Room Air 08/15/24 04:01 36.9 C 87 14 126/77 94 Room Air 08/14/24 23:42 36.7 C 87 16 123/72 93 Room Air Diagnostic Findings Reviewed imaging, laboratory and diagnostic studies. Pertinent findings as below. 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
[2024-08-15] MEDS: cephALEXin 500 MG CAP PO SCH (12:02)
--- NOTE | 2024-08-15 12:14 | Pharmacy Report ---
Pharmacy Glycemic Short Note 2 - Date of Service August 15, 2024 - Glycemic Short BSG Results (Last 24 hours): 08/14/24 08/14/24 08/14/24 14:29 20:59 21:01 Glucose POC Glucose 160 H 308 H* 306 H* 08/14/24 08/15/24 08/15/24 23:45 04:08 06:17 Glucose 146 H POC Glucose 229 H 151 H 08/15/24 08/15/24 07:39 11:56 Glucose POC Glucose 173 H 186 H OUTPATIENT ANTIDIABETIC REGIMEN: * Empagliflozin 25 mg PO qPM * Glimepiride 2 mg PO BID HbA1c: 6.8% (08/15/24) ASSESSMENT: * JS is a 68 year old male POD #1 s/p lumbar surgery * Dexamethasone 8 mg IV x 1 in OR, 6 mg IV daily x 3 days ordered starting today * Hyperglycemic postoperatively w/ fasting of 173 mg/dL this morning * Will plan to increase basal today (per HS scale) * Tighten Novolog PLAN FOR INPATIENT GLYCEMIC CONTROL: * Hold outpatient oral diabetes medications * Basal insulin * Lantus 20 SC x 1 this morning * Lantus 0-10-15 SC HS x 1 * Likely increase in AM tomorrow * Bolus insulin * NovoLog per scale ACHS or Q6hrs while NPO * Goal Range: Low 110 mg/dL - High 140 mg/dL * Correction Factor: 15 mg/dL/unit * Nutritional / Prandial insulin per carb ratio of 1 unit per 5 grams CHO consumed
[2024-08-16 06:20] LABS: Hematocrit (blood only) 30.4 % (42.0-52.0); Hemoglobin 10.2 g/dl (14.0-18.0)
[2024-08-16] MEDS: LANTUS PER UNIT CHARGE SC SCH (07:54)
--- NOTE | 2024-08-16 08:23 | Orthopedic Progress Note ---
Date of Service August 16, 2024 Assessment & Plan (1) Neurogenic claudication due to lumbar spinal stenosis: Plan: Chad is postoperative day 2 status post L3-S1 decompression and fusion. Will continue with physical therapy today. Continue with pain control. Continue with bowel regimen. DVT prophylaxis is in the form teds and SCDs. Maintain JORGE drain. Anticoagulation may be resumed tomorrow. Anticipate discharge home tomorrow Admission and Anticipated Discharge Date Admission Date: August 14, 2024 Fuad Noriega is postoperative day 2 status post L3-S1 decompression and fusion. Pain is controlled. No radicular leg pain. He had a bowel movement. JORGE drain output appears to be 40 to 50 cc although not recorded. H&H this morning are 10.2 and 30.4 respectively. Yesterday in physical therapy ambulating roughly 150 feet. No other complaints. Review of Systems Review of Systems: All systems reviewed & are unremarkable except as noted in HPI & below Physical Exam Physical Exam: He is laying in bed in no acute distress alert and oriented x 3 Lumbar dressing is clean dry and intact with functioning JORGE drain calf soft nontender bilaterally strength intact bilateral lower extremities Results & Data Vital Signs (Past 12 Hours) Vital Signs Temp Pulse Resp BP Pulse Ox O2 Del Method 08/16/24 07:00 36.4 C L 61 15 108/66 96 Room Air
--- NOTE | 2024-08-16 10:46 | Hospitalist Progress Note ---
Date of Service August 16, 2024 Assessment & Plan (1) Neurogenic claudication due to lumbar spinal stenosis: (2) Acute blood loss anemia: (3) Diabetes mellitus, type 2: (4) Hypertension: (5) Paroxysmal atrial fibrillation: (6) History of total knee replacement: Plan: On chronic suppressive antibiotic therapy Plan Patient postop day 2 from lumbar surgery Continue postoperative care per attending Continue current medical regimen Medically ready for discharge when surgically ready. Admission and Anticipated Discharge Date Admission Date: August 14, 2024 Subjective Patient reports no acute issues overnight. Pain is overall controlled. Anticipating going home tomorrow. Physical Exam Physical Exam: Constitutional: Alert, no acute distress HEENT: Mucous membranes moist. Lungs: Clear to auscultation, decreased, no wheezes rales or rhonchi CV: S1-S2, regular Abdomen: Soft, nontender, nondistended Extremities: No significant edema Neuro: No focal deficits, moves all 4 extremities Musculoskeletal: JORGE drain in surgical lumbar area, serosanguineous fluid Psych: Cooperative, normal mood Results & Data Results & Data Vital Signs (Past 12 Hours) Vital Signs Temp Pulse Resp BP Pulse Ox O2 Del Method 08/16/24 08:00 Room Air 08/16/24 07:00 36.4 C L 61 15 108/66 96 Room Air Diagnostic Findings Hemoglobin 10.2 Glucose reviewed, fair control (3) Diabetes mellitus, type 2 Diabetes mellitus [facility] insulin use: without superintendent container terminal use Diabetes mellitus complication status: without complication Qualified Code(s): E11.9 - Type 2 diabetes mellitus without complications (4) Hypertension Hypertension type: primary hypertension Qualified Code(s): I10 - Essential (primary) hypertension
[2024-08-16 20:14] VITALS: TEMP 97.7
[2024-08-17 07:43] VITALS: BP 136/82; PULSE 62; RESP 16; O2SAT 93
--- NOTE | 2024-08-17 11:28 | Hospitalist Progress Note ---
Date of Service August 17, 2024 Assessment & Plan (1) Neurogenic claudication due to lumbar spinal stenosis: (2) Acute blood loss anemia: (3) Diabetes mellitus, type 2: (4) Hypertension: (5) Paroxysmal atrial fibrillation: (6) History of total knee replacement: Plan: On chronic suppressive antibiotic therapy Plan Patient stable from a medical standpoint, able to be discharged when discharged from surgical attending perspective. Continue prior to admission medications Recommend follow-up with his PCP as scheduled Admission and Anticipated Discharge Date Admission Date: August 14, 2024 Subjective Patient states he is feeling well. Pain is controlled. His mobility is im proving. No chest pain or shortness of breath Physical Exam Physical Exam: Constitutional: Alert, no acute distress HEENT: Mucous membranes moist. 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
--- NOTE | 2024-08-17 11:57 | Discharge Summary ---
Date of Service August 17, 2024 Admission HPI Per Admitting Provider This is a 60-year-old male presents with chronic system back and leg pain and failing course of nonoperative care is here for surgical invention. Principal Diagnosis Lumbar spinal stenosis with neurogenic claudication Discharge Data Allergies Allergy/AdvReac Type Severity Reaction Status Date / Time metformin Allergy Severe Facial Verified 08/14/24 08:48 swelling Sulfa (Sulfonamide Allergy Intermediate Rash Verified 08/14/24 08:48 Antibiotics) hydrocodone Allergy Mild Rash Verified 08/14/24 08:48 Consultations 08/14/24 17:00 Consult Hospitalist Routine 08/14/24 17:26 Consult Ophthalmology Routine Procedures Performed Operation Date: 08/14/24 10:05 Actual Procedures p Revision L3-S1 Decompression and Fusion, Spinal Cord Monitoring(Not Applicable) - Jigar Bonds DO Ordered Studies 08/14/24 10:05 FL lumbar spine 2-3V Routine Hospital Course (1) Neurogenic claudication due to lumbar spinal stenosis: Patient underwent lumbar decompression fusion tolerated this well was taken to orthopedic for postoperative. Postoperatively he progressed appropriate. Pain well-controlled. Ambulating well. Extra strength testing. JORGE drain decreasing. Subsidy discharged home. Discharge orders instructions from the chart for further review. Total Time Total Time Spent Total Time Spent (In Minutes): 20 minutes Discharge Plan Discharge Items Patient Disposition: Home - Self-Care Reason For Visit: Lumbar Disc Disease, Lumbar Spondylosis, Degenerat Discharge Diagnosis: Lumbar spinal stenosis with neurogenic claudication Activity: As commented below Non-emergency contact: Primary Care Provider Call non-emergency contact if: you have any medication questions Follow-up/Referrals: PCP,NO [Primary Care Provider] - Diet: Regular Addtl Attending Provider Instructions: ACTIVITY RECOMMENDATIONS: SELF CARE INSTRUCTIONS AFTER THORACIC/LUMBAR FUSIONS 1. You may walk to your tolerance. It is good exercise for your legs and back. Expect some back and intermittent leg aches and pains. 2. You may perform "counter-top" level activities (make a sandwich, carolyn with a project, etc.). 3. No bending or lifting of more than 10 pounds or back twisting of any nature (roll like a log when turning in bed). 4. You may ride in a car for 20-30 minutes at a time. No driving until after your first visit with your doctor. 5. Frequent changes of position and restricting sitting to 30 minutes at a time will help limit the amount of back spasms and stiffness you may experience. 6. You may discontinue the use of ambulatory aids (cane, crutches, etc.) once your strength and confidence allow. 7. You may dowel machine operator the shower and let water strike your incision when you arrive home at least once daily. Do not take a tub bath, sit in a hot tub or go into a swimming pool until after your first recheck in the office. 8. You may resume previous diet. SPECIAL CARE INSTRUCTIONS: VERY IMPORTANT TO READ AND REVIEW A. Your surgical incision has been closed with a cosmetic suture under the skin that will dissolve in about 6 weeks. In 14 days, you can use a pair of clean scissors and cut the suture that is left outside of the skin at the ends of your incision. 1. The small skin tapes can be removed 7 days after surgery if they have not fallen off by that point. 2. You may keep the wound open to air as much as possible to promote healing after post-op day number 5 unless told otherwise by your doctor. 3. If you think the wound looks like it is becoming infected (redness or worsening drainage) and/or you are experiencing fever, chill or worsening back pain and muscle spasms, contact the office so that we may evaluate you as soon as possible. B. Complications are uncommon, but please contact us if you have any signs or symptoms of: 1. wound infection (fever higher than 102.5 degrees F, redness, separation of wound, drainage, or increasing pain from the incision) 2. blood clots in legs (pain, swelling, redness and warmth in legs) 3. urinary tract infection (fever higher than 102.5 degrees F, burning upon urination or increased frequency of urination) 4. nerve problems (inability to walk on your toes or heels, numbness, loss of bowel or bladder control) 5. any other symptoms that concern you C. Please call the office at if you have any concerns or questions about your operation or recovery. D. No smoking! Smoking drastically decreases the chance of a solid fusion. E. Do not take any anti-inflammatory medications (Indocin, Advil, Motrin, Aspirin, Naprosyn, etc.) as these may inhibit the chance of a solid fusion. Tylenol is okay to take for pain. MANAGING PAIN AFTER SPINAL SURGERY 1. Narcotic medication is intended for short-term use and will be provided for surgical pain. Surgical pain usually lasts for a period of 4-6 weeks. Narcotic medication includes Percocet, Vicodin, Darvocet, Tylenol #3 or Lortab. 2. Longer-term pain is more appropriately treated with non-narcotic medication such as Tylenol ES. 3. Muscle spasm is not appropriately treated with narcotics. Muscle relaxers such as Soma, Flexeril or Skelaxin can be used along with Tylenol ES. 4. Remember that we all live with some "aches and pains". This is not unusual or uncommon after an injury or as we get older. a. Back pain is expected and may include muscle spasms for 4 to 6 weeks after surgery. The pain should gradually improve. If the pain worsens for no apparent reason, please contact the office. b. Intermittent leg pain may also be experienced and should not be concerned about unless it worsens for no apparent reason. If so, please contact the office. 5. We will provide appropriate medication within the normal guidelines of their prescribed use. We will also be very cautious and aware of potential abuse and extended duration of patients' medication needs. a. Pain medications are for your comfort and to assist with sleep and rest so that the tissue can heal. They are not provided in order to return to normal activity and should not be used through the day. To do so or worsening pain at night can result from ongoing tissue damage and development of tolerance to the prescribed medicine. 6. Please allow 2-3 days to process refills. Prescriptions will not be mailed but must be picked up at the office. FOLLOW UP VISIT: Keep your scheduled follow-up appointment. Any questions, please call the office at . Pending Studies at Discharge: No Stand-Alone Forms: My [employer], Smoking Cessation Medications and DC Order Prescriptions: New tramadol 50 mg tablet 50 mg PO Q6H PRN (Reason: pain, moderate) Qty: 30 0RF oxycodone 5 mg tablet 5 mg PO Q6H PRN (Reason: pain) Qty: 30 0RF Continued multivitamin Tablet 1 tab PO QAM diltiazem HCl 240 mg Capsule,Extended Release 24hr 240 mg PO QAM glimepiride 2 mg Tablet 2 mg PO BID Rx Instructions: administer with breakfast cefadroxil 500 mg Capsule 500 mg PO BID alprazolam 0.5 mg Tablet 0.5 mg PO BID PRN (Reason: prn) ascorbic acid (vitamin C) [Vitamin C] 500 mg Tablet 500 mg PO QAM lisinopril 40 mg Tablet 40 mg PO QAM cholecalciferol (vitamin D3) [Vitamin D3] 10 mcg (400 unit) Tablet 10 mcg PO QAM atenolol 50 mg Tablet 50 mg PO UD Rx Instructions: one tab QAM and 25mg at HS Fish Oil Capsule 1,000 mg PO QAM rosuvastatin 10 mg Tablet 10 mg PO QPM hydrochlorothiazide 12.5 mg Tablet 12.5 mg PO QAM Jardiance 25 mg Tablet 25 mg PO QPM Held Eliquis 5 mg Tablet 5 mg PO BID Hold Instructions: Resume on 08/19/24. Discharge Orders: Discharge Order (Routine); Ordered 08/17/24 Ordered By: Jigar Cisneros/Other Patient Handouts: Managing Type 2 Diabetes Admission Data Admit Date/Time: 08/14/24 14:12 Attending Provider: Jigar Bonds Admit Provider: Jigar Bonds Primary Care Provider: PCP,NO Other Providers: Stevie Harmon; Yvonne Garcia
== END 2024-08-17 13:33 | disposition home or self-care (01) | DRG 427 ==
LOC: ASU 07:38 → INTOOBSV 14:12 → 3N 14:12